=== PATIENT | male | born 1975 | race Caucasian/White ===

== ENCOUNTER 2022-05-13 19:44 | Observation (INO) | payer BC, SELFPAY ==
[2022-05-13] VITALS (12 sets, daily range): BP systolic 160–183; BP diastolic 106–116; PULSE 97–106; RESP 12–17; O2SAT 97–100
--- NOTE | ~2022-05-13 | XR_ITS ---
EXAMINATION: XR chest 2V Exam Date/Time: 05/13/2022 20:15 CDT HISTORY: chest pain that radiates to back, patient shivering Comparison: None available. RESULT: Lines, tubes, and devices: None. Lungs and pleura: Clear. Cardiomediastinal silhouette: Aortic and likely pulmonary artery ectasia. Other: No acute osseous or upper abdominal finding. IMPRESSION: No acute cardiopulmonary process. Reviewed, dictated and finalized at location K.
--- NOTE | 2022-05-13 19:52 | ECG_ITS ---
Measurements Intervals [place] Rate: 96 P: 49 MA: 181 QRS: 2 QRSD: 98 T: 31 QT: 357 QTc: 451 Interpretive Statements SINUS RHYTHM NORMAL ECG INTERPRETATION BASED ON A DEFAULT AGE OF 40 YEARS NO PREVIOUS ECG AVAILABLE FOR COMPARISON Electronically Signed On 05-14-2022 10:17:00 CDT by Tirso Green M.D.
[2022-05-13 20:08] LABS: Basophils Absolute Auto 0.1 K/mm3 (0.0-0.1); Basophils Percent Auto 0.6 % (0.2-1.2); Eosinophils Absolute Auto 0.2 K/mm3 (0-0.3); Eosinophils Percent Auto 1.7 % (0-4.4); Hematocrit 43.2 % (42.0-52.0); Hemoglobin 15.4 g/dL (14.0-18.0); Immature Granulocyte Absolute 0.02 K/mm3 (0.00-0.031); Immature Granulocyte Percent A 0.2 % (0-0.5); Lymphocytes Absolute Auto 3.13 K/mm3 (0.9-3.2); Lymphocytes Percent Auto 31.1 % (18.3-44.2); Mean Corpuscular HGB Conc 35.6 g/dl (32-36); Mean Corpuscular Hemoglobin 32.4 pg (26-34); Mean Corpuscular Volume 90.9 fl (80-100); Mean Platelet Volume 9.4 fl (7.4-10.4); Monocytes Absolute Auto 0.7 K/mm3 (0.1-0.6); Monocytes Percent Auto 7.1 % (2.6-8.5); Neutrophils Percent Auto 59.3 % (45.5-73.1); Platelet Count Result 319 k/mm3 (150-375); Red Blood Count 4.75 M/mm3 (4.6-6.20); Red Cell Distribution Width 12.1 % (11.5-14.5); White Blood Count 10.1 K/mm3 (4.5-10.0)
[2022-05-13 20:19] LABS: Prothrombin Time 12.5 Seconds (11.1-14.7)
[2022-05-13 20:20] LABS: Partial Thromboplastin Time 27.4 SECONDS (22.3-36.8)
--- NOTE | 2022-05-13 20:34 | ED.CHESTPAIN ---
HPI - Chest Pain General Chief Complaint: Chest Pain Stated Complaint: Elevated BP pain in shoulder Time Seen by Provider: 05/13/22 20:00 History of Present Illness HPI narrative: This is a 46-year-old male status post kidney transplant in 1994 for unknown renal failure, present to the emergency department complaining of chest pain. Patient states earlier today he noted some left shoulder pain that migrated to the midline chest described as heaviness rated 4-5 out of 10. It does not move elsewhere. He denies loss of consciousness, weakness/numbness or nausea or vomiting. Related Data Home Medications Medication Instructions Recorded Confirmed amlodipine 10 mg tablet mg 05/13/22 cyclosporine modified 100 mg mg 05/13/22 capsule (Neoral) fluticasone propionate 50 intranasal 05/13/22 mcg/actuation nasal spray,suspension losartan 100 mg tablet mg 05/13/22 mycophenolate mofetil 500 mg tablet PO 05/13/22 prednisone 5 mg tablet mg 05/13/22 Allergies Allergy/AdvReac Type Severity Reaction Status Date / Time No Known Allergies Allergy Verified 05/13/22 20:56 Review of Systems Review of Systems: CONSTITUTIONAL: Denies fever, chills, or sweats. EYES: Denies visual changes, redness, or discharge. ENT: Denies rhinorrhea, congestion, sore throat, or otalgia. CARDIOVASCULAR: Chest pain denies palpitations, or edema. RESPIRATORY: Denies cough or dyspnea. GASTROINTESTINAL: Denies abdominal pain, nausea, vomiting, or diarrhea. GENITOURINARY: Denies dysuria or hematuria. SKIN: Denies rash or itching. MUSCULOSKELETAL: Denies back pain, joint pain, or myalgia. NEUROLOGIC: Denies headache, numbness, dizziness, or weakness. PSYCHIATRIC: Denies anxiety or depression. PMFSH Past Medical History Medical History (Updated 05/13/22 @ 20:38 by Randolph Aleman MD) Hypertension Surgical History Surgical History (Updated 05/13/22 @ 20:37 by Randolph Aleman MD) Kidney transplant recipient Social History Social History (Updated 05/13/22 @ 20:37 by Randolph Aleman MD) Smoking status: Never smoker Alcohol intake: current Substance use: never Exam Narrative: GENERAL: Well-developed, well-nourished, and in no acute distress. appears uncomfortable HEAD: Normocephalic, atraumatic. EYES: PERRLA and EOMI. ENT: Nares clear, no rhinorrhea or epistaxis. Mucous membranes moist. Oropharynx without tonsillar hypertrophy exudate or other lesions. NECK: Supple. No adenopathy or masses. No carotid bruits or JVD CHEST: Clear to auscultation. No respiratory distress. No wheezes rales or rhonchi HEART: Regular rate and rhythm. No murmur heard. Normal peripheral pulses. ABDOMEN: Soft, nontender, nondistended, normal active bowel sounds. EXTREMITIES: Normal range of motion. No edema. SKIN: Warm, dry, no rash. NEURO: No focal deficits. Alert and oriented x3. PSYCH: Normal mood and affect. Course Course Emergency Course: 21:00 - Troponin negative. Patient's heart score 4. Discussed recommendation for admission with the patient and his , voiced understanding and are comfortable with the plan. Patient states his transplant was performed at [facility]. Will obtain repeat troponin and discussed with hospitalist. 00:20 - Briefly discussed patient with hospitalist, Dr. Hummel who recommends transfer to [facility] for admission. 00:35 - White blood cell count 10. Creatinine 1.5. Troponins negative x2. Discussed patient with [facility] hospitalist, Dr. Portillo, who accepts transfer pending COVID results with admission to high risk telemetry. 04:00 - Contacted [facility], the patient is COVID negative. Vital Signs Vital signs: Vital Signs Pulse Rate 102 H 05/13/22 20:00 Respiratory Rate 14 05/13/22 20:00 Blood Pressure 183/108 H 05/13/22 20:00 Pulse Oximetry 99 05/13/22 20:00 Oxygen Delivery Room Air 05/13/22 20:00 Temperature 98.2 F 05/14/22 06:00 Pulse Rate 90 05/14/22 05:45 Respiratory Rate 15 05/14/22
[2022-05-13] MEDS: ASPIRIN 81 MG CHEWABLE TABLET 324 MG PO (20:54)
[2022-05-13 21:13] LABS: Alanine Aminotransferase 44 U/L (6-50); Albumin Level 4.6 g/dL (3.5-5.1); Alkaline Phosphatase 79 U/L (38-126); Anion Gap 11 mmol/L (8-16); Aspartate Amino Transferase 32 U/L (17-59); Bilirubin,Total 0.5 mg/dL (0.2-1.3); Blood Urea Nitrogen 23 mg/dL (9-20); Calcium 9.2 mg/dL (8.4-10.2); Carbon Dioxide 24 mmol/L (22-30); Chloride 102 mmol/L (98-107); Estimated CRCL calculation 67 ml/min; Estimated Glomerular Filt Rate 50; Glucose 120 mg/dL (65-110); Lipase 73 U/L (23-300); Potassium 3.4 mmol/L (3.4-5.0); Sodium 137 mmol/L (137-145)
[2022-05-13 21:25] LABS: Troponin I < 0.012 ng/mL (0.000-0.034)
--- NOTE | 2022-05-13 23:10 | PC.NURSE ---
Report received from RAFIA Rivero. Assumed care of patient at this time.
[2022-05-14] VITALS (90 sets, daily range): BP systolic 129–171; BP diastolic 80–108; PULSE 80–110; RESP 12–31; TEMP 36.4–37; O2SAT 78–100; BMI 32.9
[2022-05-14 00:13] LABS: Troponin I < 0.012 ng/mL (0.000-0.034)
[2022-05-14] MEDS: LABETALOL HCL INJ 100 MG/20 ML VIAL 20 MG IV PUSH (00:21)
--- NOTE | 2022-05-14 00:35 | PC.NURSE ---
0033 Vianney from [facility] transfer center calls to get update and give phone number to call when covid test results. Phone number to call is [phone].
[2022-05-14 01:01] LABS: SARS-CoV-2 RNA PCR Negative
--- NOTE | 2022-05-14 01:03 | PC.NURSE ---
0103 Called [facility] transfer center to inform them, spoke with Kirk, that patients Covid test was negative.
[2022-05-14 02:38] LABS: Troponin I < 0.012 ng/mL (0.000-0.034)
--- NOTE | 2022-05-14 03:34 | PC.NURSE ---
Patient and his inquired about patients rejection medications, that he missed his last nights dose and was wondering if he needed to grab them or wait. Informed ERP about patients missed dose of rejection meds last night. ERP stated that he recommends patient to take them. Patients stated she will go home and grab them to have the patient take them.
--- NOTE | 2022-05-14 04:19 | PC.NURSE ---
Patients returned to room and with his rejection medications. Patient took his prescribed meds. Patient denies any pain at this time. Patient resting comfortably on stretcher with at bedside. ERP notified that patient took his prescribed rejection medications.
--- NOTE | 2022-05-14 09:38 | PC.NURSE ---
[place] bed placement contacted. states unsure when bed will be available.
[2022-05-14] MEDS: amLODIPine BESYLATE 5 MG TABLET 10 MG PO (11:33)
--- NOTE | 2022-05-14 11:59 | PC.NURSE ---
pt snoring on hospital bed with at bedside. continue waiting for bed at [facility].
[2022-05-14] MEDS: LOSARTAN POTASSIUM 100 MG TABLET PO (13:34)
--- NOTE | 2022-05-14 13:36 | PC.NURSE ---
pt resting on stretcher. continues to c/o upper chest pain only with taking deep breath. , pt and family informed of all pts results and need for transfer. made aware of extended wait times. pt denies any needs at this time.
--- NOTE | 2022-05-14 15:54 | PC.NURSE ---
[facility] bed placement contacted ed obtaining more pt information. states will call when they have bed available.
--- NOTE | 2022-05-14 16:10 | PM.IMHP ---
H&P: HPI History of Present Illness Date/Time: 05/14/22 16:10 Chief Complaint: Chest pain. Narrative: This is a very pleasant 46-year-old male with history of IgA nephropathy as a teenager status post renal transplant, chronic kidney disease, and hypertension who presented to the ED for evaluation of chest pain. Yesterday afternoon while at work he developed a tight pain in the left scapula radiating to the left anterior chest and left shoulder. He initially attributed his symptoms due to muscle tension as he has been under lot of stress recently. His symptoms resolved without intervention however his symptoms recurred throughout the day without obvious pattern. At some point the tightness seemed to migrate to the left to mid chest region where it felt more like a heaviness. When he got home from work he checked his blood pressure and reports that it was in the 180s over 110s and he felt it would be best to come in for evaluation. Initial EKG and troponin were unremarkable on arrival. It was requested that the patient be admitted to the hospital for closer monitoring and Cardiology evaluation due to an elevated heart score and transfer was initiated to [place] as he has a history of renal transplant. It has been nearly 24 hours and no beds are available at [place] and the patient is okay staying at this facility for further evaluation. At the time my evaluation he is feeling okay and has not had any recurrent discomfort. With further questioning he has not had any instances of exertional chest pain or shortness of breath and he denies associated nausea, vomiting, and diaphoresis. He does suffer from GERD and takes Tums occasionally, may be a bit more so recently but the symptoms he has been experiencing are not at all similar to those he gets with GERD. He has not started any new exercise routines and has not had any recent heavy lifting. Review of Systems Review of Systems: Twelve systems were reviewed. No fever, chills, or sweats. No recent cold or flu symptoms. No history of venous thromboembolism. He believes his baseline GFR is around 60%. He has not noticed a change in urine output. Except as documented, all other systems were reviewed and are negative. [facility] Past Medical History Medical History (Updated 05/14/22 @ 21:51 by Elyssa Trujillo PA-C) Chronic kidney disease, stage 3 Hypertension IgA nephropathy Leading to renal failure for which he was on dialysis for several months prior to receiving a transplant. Surgical History Surgical History Kidney transplant recipient Family History Family History Grandparent Esophageal cancer Mother Breast cancer Social History Social History Social History: Surrogate decision maker: Vickie Kong, spouse. Code status: Full code. Smoking status: Never smoker Second hand tobacco smoke exposure: No Alcohol intake: current Drinks per week: 2 Substance use: never Substance use type: does not use Spiritual care concerns: No Meds Home Medications and Allergies Home Medications Medication Instructions Recorded Confirmed Type amlodipine 10 mg tablet 10 mg PO HS 05/13/22 05/14/22 History losartan 100 mg tablet 100 mg PO HS 05/13/22 05/14/22 History mycophenolate mofetil 500 mg tablet 500 mg PO HS 05/13/22 05/14/22 History prednisone 5 mg tablet 5 mg PO HS 05/13/22 05/14/22 History cyclosporine modified 100 mg 100 mg PO HS 05/14/22 05/14/22 History capsule (Neoral) Allergies Allergy/AdvReac Type Severity Reaction Status Date / Time No Known Allergies Allergy Verified 05/13/22 20:56 Vital Signs Vital Signs - 24 hr 05/13/22 20:03 05/13/22 20:00 05/13/22 20:51 Temperature Pulse Rate 102 H 103 H Respiratory Rate 14 14 Blood Pressure 183/108 H 170/112 H Pulse Oximetry 10
--- NOTE | 2022-05-14 16:30 | PC.NURSE ---
hospitalist pa at bedside.
--- NOTE | 2022-05-14 17:28 | ADMGEN ---
This patient, Jet Kong, was admitted to IMU Room 200-01 at 1710. Patient/family oriented to hospital policies and general routines including ID bracelet, bed and alarms, visiting hours, pain management, procedures, bathroom and other care routines, personal items, smoking policy, room service/diet, and visiting hours. Information on how to activate the Rapid Response Team has been discussed. Patient/Family are encouraged to report perceived risks to care and to ask questions if they do not understand what they are told or what they should do.
[2022-05-15] VITALS: PULSE 80; PULSE 85; RESP 20; O2SAT 99
[2022-05-15] MEDS: mycophenolate mofetiL 250 MG CAPSULE 500 MG PO (00:03)
[2022-05-15] MEDS: cycloSPORINE (NEORAL) 25 MG CAPSULE 100 MG PO (00:03)
[2022-05-15] MEDS: predniSONE 5 MG TABLET PO (00:04)
[2022-05-15 01:30] VITALS: PULSE 81
[2022-05-15 04:00] VITALS: BP 125/78; PULSE 72; PULSE 77; RESP 20; TEMP 36.5; O2SAT 99
[2022-05-15 08:00] VITALS: PULSE 80
[2022-05-15 08:27] VITALS: BP 132/84; PULSE 81; RESP 20; TEMP 36.7; O2SAT 97
[2022-05-15 09:23] LABS: Hematocrit 42.1 % (42.0-52.0); Hemoglobin 14.7 g/dL (14.0-18.0); Mean Corpuscular HGB Conc 34.9 g/dl (32-36); Mean Corpuscular Volume 91.7 fl (80-100); Mean Platelet Volume 9.5 fl (7.4-10.4); Platelet Count Result 274 k/mm3 (150-375); Red Blood Count 4.59 M/mm3 (4.6-6.20); Red Cell Distribution Width 12.3 % (11.5-14.5)
[2022-05-15 09:34] LABS: Anion Gap 9 mmol/L (8-16); Blood Urea Nitrogen 22 mg/dL (9-20); Calcium 9.8 mg/dL (8.4-10.2); Carbon Dioxide 26 mmol/L (22-30); Chloride 105 mmol/L (98-107); Estimated CRCL calculation 71 ml/min; Estimated Glomerular Filt Rate 55; Glucose 102 mg/dL (65-110); Magnesium 2.1 mg/dL (1.6-2.3); Potassium 3.8 mmol/L (3.4-5.0); Sodium 140 mmol/L (137-145)
[2022-05-15 09:57] VITALS: PULSE 92
--- NOTE | 2022-05-15 10:09 | PM.CNCAR ---
Assessment and Plan Assessment and plan (1) Chest pain: Code(s): R07.9 - Chest pain, unspecified Status: Acute Assessment and Plan: Atypical chest pain with no objective evidence of ischemia or anything to suggest an acute coronary syndrome. Currently chest pain free. Will arrange outpatient exercise stress test and follow up in our office. He can be discharged home today from a cardiac perspective. (2) Hypertension: Code(s): I10 - Essential (primary) hypertension Status: Acute Assessment and Plan: Currently at goal. Continue current regimen. History of Present Illness History of Present Illness Consult date/time: 05/15/22 10:09 Requesting physician: Juan Antonio Diaz MD Consult reason: chest pain Reason For Visit: Chest Pain Narrative: Mr. Kong is a 46 year old gentleman with a medical history of hypertension, dyslipidemia, and renal transplant in the for IgA nephropathy. He presents to the hospital with a chief complaint of chest pain. He noticed onset of pain in between his shoulders that felt like a tightness/cramping. The pain was also present in his left shoulder and on the left side of his neck. Pain was intermittent and occurred initially at rest, was not aggravated by activity. Patient states the pain increased in intensity and he also experienced a sensation of chest tightness which prompted evaluation at the ED. On presentation to the ED his blood pressure was elevated at 183/108. EKG showed normal sinus rhythm, no acute ischemic changes. Serial troponins have been negative. He states he had a recurrence of chest pain following his evening meal yesterday but currently is free from chest pain and has no complaints of any kind. His notes that he has been under a great deal of stress lately with family issues. Review of Systems Constitutional: Constitutional: Denies chills, Denies fever(s), Denies headache(s) and Denies malaise Eyes: Eyes: Denies change in vision ENT: Reports Normal hearing present, Denies dizziness, Denies headache(s) and Denies hearing loss Cardiovascular: Cardiovascular: Reports chest pain, Denies chest pain with activity, Denies syncope, Denies leg edema, Denies palpitations, Denies dyspnea and Denies dyspnea on exertion Respiratory: Respiratory: Denies cough, Denies dyspnea, Denies dyspnea on exertion and Denies wheezing Gastrointestinal: Gastrointestinal: Denies abdominal pain, Denies constipation and Denies diarrhea Genitourinary: Genitourinary: Denies hematuria and Denies dysuria Musculoskeletal: Musculoskeletal: Denies myalgias, Denies arthralgias and Denies muscle cramps Integumentary/Breasts: Skin/Breast: Denies wounds Neurologic: Reports Normal hearing present, Denies confusion, Denies dizziness, Denies syncope and Denies headache(s) Psychiatric: Psychiatric: Denies anxiety, Denies confusion and Denies depression Endocrine: Endocrine: Denies cold intolerance, Denies flushing, Denies heat intolerance and Denies palpitations Hematologic/Lymphatic: Hematologic/Lymphatic: Denies easy bleeding and Denies easy bruising Allergic/Immunologic: Allergic/Immunologic: Denies wheezing PMFSH Past Medical History Medical History Chronic kidney disease, stage 3 Hypertension IgA nephropathy Leading to renal failure for which he was on dialysis for several months prior to receiving a transplant. Surgical History Surgical History Kidney transplant recipient Family History Family History Grandparent Esophageal cancer Mother Breast cancer Social History Social History Social History: Surrogate decision maker: Vickie Kong, spouse. Code status: Full code. Smoking status: Never smoker Second hand tobacco
--- NOTE | 2022-05-15 10:30 | PM.DS ---
DS: Admitting Diagnosis Discharge Date 05/15/2022 Admitting Diagnosis Chest pain DS: Discharge Diagnosis Discharge Diagnosis (1) Chest pain: Code(s): R07.9 - Chest pain, unspecified Status: Acute (2) Chronic kidney disease, stage 3: Code(s): N18.30 - Chronic kidney disease, stage 3 unspecified Status: Acute (3) Hypertension: Code(s): I10 - Essential (primary) hypertension Status: Acute DS: Summary Hospital Course Hospital Course: The patient presented to the emergency department on 05/13/2022 after developing a tightness in the left scapular radiating to the left shoulder and left anterior chest. At home he noticed that his blood pressure was much higher than usual, about 180/110, and he decided to come in for evaluation after he began having a heaviness sensation more so in the mid chest region. He was evaluated with EKG which showed normal sinus rhythm without any acute findings of ischemia. He ruled out for acute coronary syndrome with negative serial troponins x3. He does have history of reflux disease and takes Tums every other day. His blood pressure was elevated on arrival to the ED. he received a dose of IV labetalol in the ER and was resumed on his home medication. His blood pressure remained optimal throughout the hospital course. Chest pain was atypical and most likely GERD/musculoskeletal. There also been lot of stress lately and his family. He was initially planned for transfer to [facility] due to his history of kidney transplant however because of unavailability of bed was admitted to our facility here. Cardiology was consulted here and plans for outpatient stress test. He will be added on PPI for his underlying GERD which is likely the etiology for his chest pain. He remained hemodynamically stable throughout the hospital stay. Time Spent with Patient Time attestation: Total time spent providing and/or coordinating discharge services: 40 minutes Exam Narrative: General: Well-developed male in the semi-Dupree position in bed in no distress. HEENT: Normocephalic, atraumatic. PERRL, EOMI. Sclera anicteric. Oral mucosa moist. Oropharynx clear. Neck: Supple. No lymphadenopathy or jugular venous distention. Respiratory: Lungs are clear to auscultation bilaterally. Cardiovascular: Regular rate and rhythm with S1-S2. Chest: No tenderness to palpation over the chest wall. Gastrointestinal: Abdomen is soft, nontender, and nondistended with positive bowel sounds. Skin: Warm and dry. No rash or lesions on limited exam. Extremities: No cyanosis, clubbing, or edema. Radial and pedal pulses intact. No knots or cords. Negative Marga sign bilaterally. Neurological: Alert. Cranial nerves 2-12 are grossly intact. No gross focal deficits to casual conversation. Psychiatric: Pleasant and cooperative with normal mood and affect. Judgment and insight intact. DS: Data Data Completed and Pending Labs on day of discharge: Labs from last 24 hours 05/15/22 05/15/22 09:15 09:15 WBC 8.0 RBC 4.59 L Hgb 14.7 Hct 42.1 MCV 91.7 MCH 32.0 MCHC 34.9 RDW 12.3 Plt Count 274 MPV 9.5 Sodium 140 Potassium 3.8 Chloride 105 Carbon Dioxide 26 Anion Gap 9 BUN 22 H Creatinine 1.40 H Estim Creat Clear Calc 71 Estimated GFR 55 L Glucose 102 Calcium 9.8 Magnesium 2.1 Imaging Radiologist's impression: ITS Impressions Chest X-Ray 05/13/22 20:28 IMPRESSION: No acute cardiopulmonary process. Discharge Plan Discharge Attending physician on discharge: Juan Antonio Diaz Consulting providers: Tamara Huynh Discharging Clinician: Juan Antonio Diaz Anticipated Discharge Date/Time: 05/15/22 10:29 Patient Disposition: Home, Self-Care Activity: as tolerated Diet: heart healthy and renal Patient Instructions: Antibiotic Form, Chest Pain (DC), Pain Management (DC) Stand Alone Forms: General Discharge Informa
== END 2022-05-15 11:10 | disposition home or self-care (01) ==
LOC: ANHED 05-14 07:45 → ANHIMU 05-14 16:33
PROVIDERS: Admitting Provider Chiropractor; Emergency Provider Preventive Medicine Aerospace Medicine; PCP Physician Assistant; Visit Provider Internal Medicine
DX: R07.9 Chest pain, unspecified (principal); Z94.0 Kidney transplant status; I12.9 Hypertensive chronic kidney disease with stage 1 through stage 4 chronic kidney disease, or unspecified chronic kidney disease; N18.30 Chronic kidney disease, stage 3 unspecified; Z20.822 Contact with and (suspected) exposure to COVID-19
CPT/HCPCS: 36415; 71046; 80048; 80053; 83690; 83735; 84484; 85025; 85027; 85610; 85730; 93005; 99285; A9270; C9803; G0378; J7512; J7515; J7517; U0003; U0005